=== PATIENT | male | born 1990 | race American Indian/Alaskan Native ===

== ENCOUNTER 2018-12-28 00:03 | Emergency (ER) | payer OTHER ==
[2018-12-28 00:15] VITALS: BP 132/84
[2018-12-28] MEDS ORDERED: PERCOCET 5/325 PO ONE (03:44)
--- NOTE | 2018-12-28 03:44 | Emergency Department Report ---
ED General Adult HPI - General Chief complaint: Rectal Pain Stated complaint: RECTAL PAIN Source: patient Mode of arrival: Ambulatory Limitations: No Limitations - History of Present Illness Initial comments: This is a 28-year-old -[place] male presents with the mass to rectal area for 2 years. Patient states he was seen at [facility] 2 years ago and diagnosed with a rectal lipoma. He reports increased pain and drainage started yesterday. The abscess drained once before with brown discharge about 2 weeks ago; decrease and then returned. He reports discharge is foul odor and reddish-brown in color. Onset/Timin -: week(s) Location: buttocks Severity scale (0 -10): 10 Quality: aching, sharp Consistency: constant Improves with: none Worsens with: movement Associated Symptoms: denies other symptoms Treatments Prior to Arrival: NSAID, heat therapy - Related Data Previous Rx's Medication Instructions Recorded Last Taken Type Acetaminophen/Codeine [Tylenol 1 tab PO Q6H PRN #12 tab 12/28/18 Unknown Rx /Codeine # 3 tab] Clindamycin [Clindamycin CAP] 300 mg PO Q8H #30 cap 12/28/18 Unknown Rx Naproxen [Naprosyn] 500 mg PO TID #15 tablet 12/28/18 Unknown Rx Allergies Allergy/AdvReac Type Severity Reaction Status Date / Time No Known Allergies Allergy Unverified 12/28/18 00:15 ED Review of Systems ROS: Stated complaint: RECTAL PAIN Other details as noted in HPI Constitutional: denies: chills, fever Respiratory: denies: cough, shortness of breath, wheezing Cardiovascular: denies: chest pain, palpitations Gastrointestinal: denies: abdominal pain, nausea, diarrhea Skin: lesions (abscess of perirectal area). denies: rash Neurological: denies: headache, weakness, paresthesias Psychiatric: denies: anxiety, depression ED Past Medical Hx - Past Medical History Previous Medical History?: No - Surgical History Past Surgical History?: No - Social History Smoking Status: Current Every Day Smoker Substance Use Type: Alcohol, Marijuana - Medications Home Medications: Home Medications Medication Instructions Recorded Confirmed Last Taken Type Acetaminophen/Codeine [Tylenol 1 tab PO Q6H PRN #12 tab 12/28/18 Unknown Rx /Codeine # 3 tab] Clindamycin [Clindamycin CAP] 300 mg PO Q8H #30 cap 12/28/18 Unknown Rx Naproxen [Naprosyn] 500 mg PO TID #15 tablet 12/28/18 Unknown Rx ED Physical Exam - General Limitations: No Limitations General appearance: alert, in no apparent distress - Respiratory Respiratory exam: Present: normal lung sounds bilaterally. Absent: respiratory distress - Cardiovascular Cardiovascular Exam: Present: regular rate, normal rhythm. Absent: systolic murmur, diastolic murmur, rubs, gallop - GI/Abdominal GI/Abdominal exam: Present: soft, normal bowel sounds - Neurological Exam Neurological exam: Present: alert, oriented X3 - Psychiatric Psychiatric exam: Present: normal affect, normal mood - Skin Skin exam: Present: warm, dry, intact, normal color, other (5 cm fluctuant abscess to left buttock, tenderness, purulent discharge, surrounding cellulitis). Absent: rash ED Course Vital Signs 12/28/18 00:10 Temperature 98.2 F Pulse Rate 84 Blood Pressure 132/84 O2 Sat by Pulse 100 Oximetry ED Medical Decision Making - Medical Decision Making This is a 28 y.o. male that presents with a painful abscess to left buttocks for 3 weeks. Diagnosed with a lipoma in the same area 2 years ago in [facility]. He reports area draining intermittently but always return. Patient is stable and examined by me. Physical assessment of 5 cm fluctuance nodule to left buttocks. No acute signs of distress noted. Given Percocet 5 mg po once in ER. I&D refer to note. Discussed plan to start clindamycin, naproxen, and Tylenol No. 3 with patient. Educated patient on follow up plan to have packing removed and wound reassessed in 2-3 days. Patient agrees to ED plan of care. Referral to dermatology and general surgery. Discharged home and follow up with PCP in 2-3 days. Critical care attestation.: If time is entered above; I have spent that time in minutes in the direct care of this critically ill patient, excluding procedure time. ED Disposition Clinical Impression: Abscess Disposition: DC-01 TO HOME OR SELFCARE Is pt being admited?: No Does the pt Need Aspirin: No Condition: Stable Instructions: Abscess Incision and Drainage (ED), Abscess (ED) Additional Instructions: Keep packing in place for 2-3 days. Return to ER or f/u with PCP to have packing removed and wound reassessed. Complete full round of clindamycin antibiotic as prescribed. Follow up with makeup sales advisor. Follow-up with general surgeon from referrals below. Return to ER if foul smelling discharge, swelling, or severe pain to wound. Prescriptions: Acetaminophen/Codeine [Tylenol /Codeine # 3 tab] 1 tab PO Q6H PRN #12 tab PRN Reason: Pain , Severe (7-10) Clindamycin [Clindamycin CAP] 300 mg PO Q8H #30 cap Naproxen [Naprosyn] 500 mg PO TID #15 tablet Referrals: [facility] [Provider Group] - 3-5 Days [facility] [Outside] - 3-5 Days [facility] [Outside] - 3-5 Days LESTER PRAIRIE DES CHUN MD [Primary Care Provider] - 3-5 Days BAILEY GAMBLE MD [Staff Physician] - 3-5 Days Forms: Work/School Release Form(ED) Time of Disposition: 05:20 I & D Note - I & D Note I & D Note: The area was prepared and draped in the usual, sterile manner. The site was anesthetized with 2% lidocaine without epinephrine 3 mL. A linear incision along the local skin lines was made and the purulent material expressed. The abcess was explored thoroughly and sequestered pockets were opened. Bleeding was minimal. Packing: idodoform. Followup: The patient tolerated the procedure well without complications. Standard post-procedure care was explained and return precautions are given.
[2018-12-28] MEDS ORDERED: XYLOCAINE 2% INFILTRATI ONE (03:45)
== END 2018-12-28 05:28 | disposition home or self-care (01) ==
LOC: ED 00:03
DX: L02.31 Cutaneous abscess of buttock (principal); F17.200 Nicotine dependence, unspecified, uncomplicated
CPT/HCPCS: 87116; 88304; 88305; 88312